=== PATIENT | female | born 1990 | race African-American/Black ===

== ENCOUNTER → 2016-11-11 | Outpatient (CLI) | payer OTHER ==
[~2016-11-11] MED LIST: ALBUTEROL0.09 MG/A2 IH; ALBUTEROL0.09 MG/A2 INH; BENADRYL25 MG PO; CIPRO500 MG PO; COLACE100 MG PO; FE-TABS325 MG PO; HYDROCODONE BIT1 T11 PO; MACROBID100 M1 PO; MACRODANTIN100 MG PO; MOTRIN800 MG PO; NO DAILY MEDS; PREDNISONE10 MG PO; PRENATAL1 TA1 PO; PYRIDIUM200 MG PO; QVAR40 MCG INH; TRAMADOL HCL50 MG PO; VENTOLIN H0.09 MG/AC INH; VICODIN 5/500 505 MG PO; VISTARIL50 MG PO; ZANTAC 150150 MG PO; ZITHROMAX Z PA250 MG PO; ZITHROMAX250 MG PO; ZOFRAN ODT4 MG SL; ZOLOFT100 MG PO
== END | disposition home or self-care (01) ==
LOC: LAB 10:48
DX: Z32.01 Encounter for pregnancy test, result positive (principal)

== ENCOUNTER 2017-05-27 11:05 | Emergency (ER) | payer OTHER ==
[~2017-05-27] VITALS: Ht 172.7 cm; Wt 63.5 kg
[2017-05-27 11:12] VITALS: BP 142/75
[2017-05-27] MEDS ORDERED: VENTOLIN H0.09 MG/AC INH (11:29)
[2017-05-27] MEDS ORDERED: MEDROL DOSEPAK4 MG PO (11:29)
== END 2017-05-27 12:20 | disposition home or self-care (01) ==
LOC: ED 11:05
DX: J40 Bronchitis, not specified as acute or chronic (principal); F17.200 Nicotine dependence, unspecified, uncomplicated; Z88.0 Allergy status to penicillin; Z88.1 Allergy status to other antibiotic agents

== ENCOUNTER → 2024-09-13 | Outpatient (CLI) | payer OTHER ==
[~2024-09-13] MED LIST changes: +MEDROL DOSEPAK4 MG PO
== END | disposition home or self-care (01) ==
LOC: US 15:00
PROVIDERS: ATTEND Midwife
DX: O20.9 Hemorrhage in early pregnancy, unspecified (principal); Z3A.01 Less than 8 weeks gestation of pregnancy

== ENCOUNTER → 2025-01-23 | Outpatient (CLI) | payer OTHER ==
[2025-01-23 13:29] LABS: BASO % 0.3 % (0.0-1.0); EOS # 0.2 10*3/uL (0.0-0.4); EOS % 1.9 % (1.0-4.0); HEMATOCRIT 31.8 % (37.0-47.0); MEAN CELL VOLUME 91.9 fl (81.0-99.0); MEAN CORPUSCULAR HGB 28.9 pg (27.0-31.0); MEAN CORPUSCULAR HGB CONC 31.4 g/dl (33.0-37.0); MEAN PLATELET VOLUME 7.9 fl (9.6-12.3); MONO # 0.9 10*3/uL (0.1-1.0); NEUT # 6.9 10*3/uL (2.3-7.9); NEUT % 71.6 % (47.0-73.0); PLATELET COUNT AUTOMATED 386 10*3/uL (130-400); RED BLOOD COUNT 3.46 10*6/uL (4.10-5.10); RED CELL DISTRI WIDTH 13.2 % (0-14.5); WHITE BLOOD COUNT 9.7 10*3/uL (4.8-10.8)
[2025-01-23 14:05] LABS: ALKALINE PHOSPHATASE 88 U/L (46-116); BUN < 5 mg/dl (9-23); CHLORIDE 101 mmol/L (98-107); SGPT/ALT 19 U/L (5-49); TOTAL PROTEIN 7.1 gm/dL (6.0-8.0)
== END | disposition home or self-care (01) ==
LOC: LAB 13:04
PROVIDERS: ATTEND Midwife
DX: O16.2 Unspecified maternal hypertension, second trimester (principal); Z3A.23 23 weeks gestation of pregnancy

== ENCOUNTER → 2025-02-14 | Outpatient (CLI) | payer OTHER ==
[2025-02-14 09:45] LABS: BASO % 0.3 % (0.0-1.0); EOS # 0.1 10*3/uL (0.0-0.4); EOS % 0.9 % (1.0-4.0); HEMATOCRIT 30.9 % (37.0-47.0); MEAN CELL VOLUME 89.8 fl (81.0-99.0); MEAN CORPUSCULAR HGB 27.9 pg (27.0-31.0); MEAN CORPUSCULAR HGB CONC 31.1 g/dl (33.0-37.0); MEAN PLATELET VOLUME 8.1 fl (9.6-12.3); MONO # 0.8 10*3/uL (0.1-1.0); MONO % 8.4 % (3.0-9.0); NEUT # 6.7 10*3/uL (2.3-7.9); NEUT % 73.4 % (47.0-73.0); PLATELET COUNT AUTOMATED 388 10*3/uL (130-400); RED BLOOD COUNT 3.44 10*6/uL (4.10-5.10); RED CELL DISTRI WIDTH 14.3 % (0-14.5); WHITE BLOOD COUNT 9.1 10*3/uL (4.8-10.8)
== END | disposition home or self-care (01) ==
LOC: LAB 09:11
PROVIDERS: ATTEND Midwife
DX: Z34.92 Encounter for supervision of normal pregnancy, unspecified, second trimester (principal); Z3A.27 27 weeks gestation of pregnancy